=== PATIENT | female | born 1985 | race African-American/Black ===

== ENCOUNTER 2017-09-05 11:58 | Emergency (ER) | payer OTHER ==
[~2017-09-05] VITALS: Ht 165.1 cm; Wt 108.9 kg
[~2017-09-05 11:58] MED LIST: ADVIL200 M1; ADVIL200 M3; AMOXIL 875 MG875 M1 PO; APAP500 PO; CYCLOBENZAPRINE5 MG PO; DERMOPLAST SPRA56 ML; DIABETA 2.5MG2.5 MG PO; DOXYCYCLINE 10100 MG PO; FLONASE 0.05%50 MCG NASAL; HYDROCODON-ACE1 EAC7 PO; HYDROCORTISONE30 G9 RE; IBUPROFEN 600600 M1 PO; IBUPROFEN 800800 M1 PO; IBUPROFEN 800800 MG PO; KEFLEX500 MG PO; LANOLIN56 GM; NAPROSYN500 MG PO; NOHOMEMEDICATIONS; NORCO 5-325 TA1 EACH PO; NORFLEX100 MG PO; PERCOCET PO; PRENATAL; PRENATAL PO; PRENATAL TABLE1 EAC3 PO; PROMETHAZINE-C120 ML PO; TRAMADOL 50 MG50 MG PO; TRIAMTERENE-HC1 EAC1 PO; TUCKS MEDICATE1 EAC1; ULTRAM 50MG TAB50 MG PO; VENTOLIN17 GM INH; ZPAK PO
[2017-09-05] MEDS ORDERED: TESSALON PERLE100 MG PO (13:18)
[2017-09-05] MEDS ORDERED: PREDNISONE 20 M20 MG PO (13:18)
== END 2017-09-05 13:37 | disposition home or self-care (01) ==
LOC: ER 11:58
DX: J40 Bronchitis, not specified as acute or chronic (principal); F17.210 Nicotine dependence, cigarettes, uncomplicated; F10.99 Alcohol use, unspecified with unspecified alcohol-induced disorder

== ENCOUNTER 2018-01-02 17:55 | Emergency (ER) | payer OTHER ==
[~2018-01-02] VITALS: Ht 165.1 cm; Wt 113.4 kg
--- NOTE | ~2018-01-02 | EKG ---
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: DARINEL : 1985 Requested By: Laura Muñiz Order Number: [id number] MD: Kalpesh Newton Measurements Intervals [place] Rate: 68 P: 20 WV: 165 QRS: -2 QRSD: 100 T: 12 QT: 410 QTc: 437 Interpretive Statements Sinus rhythm Nonspecific T wave abnormality Baseline wander in lead(s) I,aVL,V1 Compared to ECG 09/15/2016 11:25:47 T wave abnormality is now present Electronically Signed On 01-04-2018 8:44:17 NAVIGATING OFFICER by Kalpesh Newton [email or web address] <ELECTRONICALLY SIGNED> By: Kalpesh Newton MD, [facility] 01/04/18 0844 1811 181 Kalpesh Newton MD, [facility] /EPI
[~2018-01-02 17:55] MED LIST changes: +FLAGYL500 MG PO; +MOBIC7.5 MG PO; +ONDANSETRON HCL4 M2 PO; +PREDNISONE 20 M20 MG PO; +TESSALON PERLE100 MG PO
[2018-01-02] MEDS ORDERED: VIRTUSSIN AC L118 ML PO (18:36)
[2018-01-02] MEDS ORDERED: TESSALON PERLE100 MG PO (18:36)
[2018-01-02 18:55] VITALS: BP 125/74
[2018-05-28] MEDS ORDERED: TRAMADOL 50 MG50 MG PO (22:20)
[2018-05-28] MEDS ORDERED: PREDNISONE 20 M20 MG PO (22:20)
[2018-07-30] MEDS ORDERED: MEDROLDOSEPACK PO (12:09)
[2018-07-30] MEDS ORDERED: NORCO 5-325 TA1 EACH PO (12:09)
[2018-07-30] MEDS ORDERED: FLEXERIL PO (12:09)
== END 2018-01-02 18:59 | disposition home or self-care (01) ==
LOC: ER 17:55
DX: J06.9 Acute upper respiratory infection, unspecified (principal); R07.89 Other chest pain; F17.210 Nicotine dependence, cigarettes, uncomplicated

== ENCOUNTER 2018-09-25 18:44 | Emergency (ER) | payer OTHER ==
[~2018-09-25] VITALS: Ht 165.1 cm; Wt 120.2 kg
[~2018-09-25 18:44] MED LIST changes: +FLEXERIL PO; +MEDROLDOSEPACK PO; +VIRTUSSIN AC L118 ML PO
[2018-09-25 19:03] LABS: URINE BILIRUBIN NEGATIVE (Negative); URINE BLOOD NEGATIVE (Negative); URINE CLARITY CLEAR; URINE COLOR YELLOW; URINE GLUCOSE-RANDOM* NEGATIVE (Negative); URINE KETONES NEGATIVE (Negative); URINE LEUKOCYTES-REFLEX NEGATIVE (Negative); URINE NITRITE-REFLEX NEGATIVE (Negative); URINE PROTEIN (DIPSTICK) NEGATIVE (Negative); URINE SPECIFIC GRAVITY 1.015 (1.005-1.035); URINE UROBILINOGEN 0.2 E.U./dl (0.2-1.0)
[2018-09-25 19:16] LABS: BACTERIA-REFLEX None Seen /HPF (None Seen); CASTS None Seen /LPF (None Seen); CRYSTALS None Seen /LPF (None Seen); SQUAMOUS None Seen /LPF (0-3); URINE RBC 0-2 Rare /HPF (0-2); URINE WBC-REFLEX None Seen /HPF (0-5)
[2018-09-25 20:55] LABS: ABSOLUTE NEUTROPHILS 3.3 thou/uL (1.4-8.2); BASOPHILS 1.1 % (0.0-2.0); EOSINOPHILS 4.4 % (0.0-3.0); HEMATOCRIT 36.9 % (37.0-47.0); HEMOGLOBIN 12.7 gm/dL (12.0-15.0); LYMPHOCYTES 31.1 % (24.0-44.0); MCH 30.5 pg (26.0-34.0); MCHC 34.6 g/dL (28.0-37.0); MCV 88.2 fL (80.0-100.0); MONOCYTES 5.7 % (1.0-8.0); PLATELET COUNT 281 thou/uL (150-400); POLYS 57.7 % (36.0-66.0); RBC 4.18 mil/uL (4.20-5.00); RDW 14.1 % (10.5-14.5); WBC 5.7 thou/uL (4.0-11.0)
[2018-09-25 21:04] LABS: CALCIUM 8.8 mg/dL (8.5-10.1); CREATININE 1.1 mg/dL (0.6-1.0); POTASSIUM 3.4 mmol/L (3.5-5.1)
[2018-09-25 21:09] LABS: ALBUMIN 3.4 g/dL (3.4-5.0); TOTAL BILIRUBIN 0.1 mg/dL (<0.1-1.0); TOTAL PROTEIN 7.3 g/dL (6.4-8.2)
[2018-09-25] MEDS ORDERED: ONDANSETRON HCL4 M2 PO (21:49)
[2018-09-25] MEDS ORDERED: PREDNISONE 20 M20 M1 PO (21:52)
== END 2018-09-25 22:02 | disposition home or self-care (01) ==
LOC: ER 18:44
PROVIDERS: Emergency Medicine; Physician Assistant
DX: B34.9 Viral infection, unspecified (principal); E87.6 Hypokalemia; R09.81 Nasal congestion; R53.81 Other malaise; R11.0 Nausea; F17.210 Nicotine dependence, cigarettes, uncomplicated; R42 Dizziness and giddiness

== ENCOUNTER 2018-11-28 12:54 | Emergency (ER) | payer BC ==
[~2018-11-28] VITALS: Ht 167.6 cm; Wt 104.3 kg
[~2018-11-28 12:54] MED LIST changes: +PREDNISONE 20 M20 M1 PO
[2018-11-28] MEDS ORDERED: TRAMADOL 50 MG50 MG PO (14:51)
[2018-11-28] MEDS ORDERED: FLEXERIL PO (14:51)
[2018-11-28] MEDS ORDERED: MEDROLDOSEPACK PO (14:51)
[2018-11-28 15:21] VITALS: BP 148/58
== END 2018-11-28 15:21 | disposition home or self-care (01) ==
LOC: ER 12:54
DX: M25.561 Pain in right knee (principal); M54.31 Sciatica, right side; F17.210 Nicotine dependence, cigarettes, uncomplicated

== ENCOUNTER 2019-01-11 08:47 | Emergency (ER) | payer BC ==
[~2019-01-11] VITALS: Ht 165.1 cm; Wt 121.1 kg
[2019-01-11 10:03] VITALS: BP 98/58
== END 2019-01-11 10:03 | disposition home or self-care (01) ==
LOC: ER 08:47
DX: S39.92XA Unspecified injury of lower back, initial encounter (principal); F17.210 Nicotine dependence, cigarettes, uncomplicated; W10.9XXA Fall (on) (from) unspecified stairs and steps, initial encounter; Y92.89 Other specified places as the place of occurrence of the external cause; Y93.89 Activity, other specified; Y99.8 Other external cause status

== ENCOUNTER 2019-01-31 10:00 | Emergency (ER) | payer BC ==
[~2019-01-31] VITALS: Ht 165.1 cm; Wt 120.2 kg
[2019-01-31] MEDS ORDERED: PREDNISONE 20 M20 MG PO (11:11)
[2019-01-31] MEDS ORDERED: PEPCID20 MG PO (11:11)
[2019-01-31 12:18] VITALS: BP 127/56
== END 2019-01-31 12:19 | disposition home or self-care (01) ==
LOC: ER 10:00
DX: L23.9 Allergic contact dermatitis, unspecified cause (principal); L29.9 Pruritus, unspecified; F17.210 Nicotine dependence, cigarettes, uncomplicated

== ENCOUNTER 2019-07-21 15:44 | Emergency (ER) | payer OTHER ==
[~2019-07-21] VITALS: Ht 165.1 cm; Wt 117.9 kg
[~2019-07-21 15:44] MED LIST changes: +PEPCID20 MG PO
[2019-07-21 16:23] LABS: ABSOLUTE NEUTROPHILS 3.4 thou/uL (1.4-8.2); BASOPHILS 1.1 % (0.0-2.0); EOSINOPHILS 3.1 % (0.0-3.0); HEMATOCRIT 37.6 % (37.0-47.0); HEMOGLOBIN 12.8 gm/dL (12.0-15.0); LYMPHOCYTES 30.1 % (24.0-44.0); MCH 30.7 pg (26.0-34.0); MCHC 34.1 g/dL (28.0-37.0); MCV 90.1 fL (80.0-100.0); MONOCYTES 7.6 % (1.0-8.0); PLATELET COUNT 337 thou/uL (150-400); POLYS 58.1 % (36.0-66.0); RBC 4.18 mil/uL (4.20-5.00); RDW 14.1 % (10.5-14.5); WBC 5.9 thou/uL (4.0-11.0)
[2019-07-21 16:30] LABS: CALCIUM 8.7 mg/dL (8.5-10.1); CREATININE 0.7 mg/dL (0.6-1.0); POTASSIUM 3.7 mmol/L (3.5-5.1)
[2019-07-21 16:36] LABS: ALBUMIN 3.6 g/dL (3.4-5.0); TOTAL BILIRUBIN 0.1 mg/dL (<0.1-1.0); TOTAL PROTEIN 7.3 g/dL (6.4-8.2)
[2019-07-21 17:40] LABS: URINE BILIRUBIN NEGATIVE (Negative); URINE BLOOD 3+ (Negative); URINE CLARITY CLOUDY; URINE COLOR YELLOW; URINE GLUCOSE-RANDOM* NEGATIVE (Negative); URINE KETONES NEGATIVE (Negative); URINE LEUKOCYTES-REFLEX NEGATIVE (Negative); URINE NITRITE-REFLEX NEGATIVE (Negative); URINE PROTEIN (DIPSTICK) 1+ (Negative)
[2019-07-21 17:50] LABS: SQUAMOUS 4-10 Moderate /LPF (0-3)
[2019-07-21 17:51] LABS: BACTERIA-REFLEX 1-9 Few /HPF (None Seen); CASTS None Seen /LPF (None Seen); CRYSTALS None Seen /LPF (None Seen); URINE RBC >20 Many /HPF (0-2); URINE WBC-REFLEX None Seen /HPF (0-5)
[2019-07-21] MEDS ORDERED: NAPROSYN500 MG PO (18:24)
[2019-07-21] MEDS ORDERED: ONDANSETRON ODT8 MG PO (18:24)
[2019-07-21] MEDS ORDERED: TRAMADOL 50 MG50 MG PO (18:24)
[2019-07-21 18:39] VITALS: BP 147/70
== END 2019-07-21 18:52 | disposition home or self-care (01) ==
LOC: ER 15:44
PROVIDERS: Emergency Medicine
DX: R10.31 Right lower quadrant pain (principal); R11.2 Nausea with vomiting, unspecified; R05 Cough; F17.210 Nicotine dependence, cigarettes, uncomplicated; Z98.51 Tubal ligation status

== ENCOUNTER 2019-09-16 09:17 | Emergency (ER) | payer OTHER ==
[~2019-09-16] VITALS: Ht 165.1 cm; Wt 113.4 kg
[~2019-09-16 09:17] MED LIST changes: +ONDANSETRON ODT8 MG PO
[2019-09-16 09:43] LABS: URINE BILIRUBIN NEGATIVE (Negative); URINE BLOOD 3+ (Negative); URINE CLARITY CLEAR; URINE COLOR YELLOW; URINE GLUCOSE-RANDOM* NEGATIVE (Negative); URINE KETONES NEGATIVE (Negative); URINE LEUKOCYTES-REFLEX NEGATIVE (Negative); URINE NITRITE-REFLEX NEGATIVE (Negative); URINE PROTEIN (DIPSTICK) TRACE (Negative); URINE SPECIFIC GRAVITY 1.015 (1.005-1.035); URINE UROBILINOGEN 0.2 E.U./dl (0.2-1.0)
[2019-09-16 10:10] LABS: CASTS None Seen /LPF (None Seen); MUCUS >6 Heavy strn/LPF (None Seen); SQUAMOUS >10 Many /LPF (0-3)
[2019-09-16 10:11] LABS: BACTERIA-REFLEX 1-9 Few /HPF (None Seen); CRYSTALS None Seen /LPF (None Seen); URINE RBC 0-2 Rare /HPF (0-2); URINE WBC-REFLEX 0-5 Rare /HPF (0-5)
[2019-09-16 11:21] VITALS: BP 128/60
== END 2019-09-16 11:25 | disposition home or self-care (01) ==
LOC: ER 09:17
PROVIDERS: Emergency Medicine
DX: G89.29 Other chronic pain (principal); M54.5 Low back pain; F17.210 Nicotine dependence, cigarettes, uncomplicated

== ENCOUNTER → 2019-12-21 | Emergency (ER) | payer OTHER ==
[~2019-12-21] VITALS: Ht 165.1 cm; Wt 115.7 kg
[2019-12-21 13:05] VITALS: BP 138/70
== END ==
LOC: ER 10:47
DX: M54.5 Low back pain (principal); M25.561 Pain in right knee; M25.562 Pain in left knee; M25.461 Effusion, right knee; F17.210 Nicotine dependence, cigarettes, uncomplicated; Z98.51 Tubal ligation status; W01.0XXA Fall on same level from slipping, tripping and stumbling without subsequent striking against object, initial encounter; Y93.89 Activity, other specified; Y92.89 Other specified places as the place of occurrence of the external cause; Y99.8 Other external cause status

== ENCOUNTER 2020-01-31 12:51 | Emergency (ER) | payer OTHER ==
[~2020-01-31] VITALS: Ht 165.1 cm; Wt 113.4 kg
[2020-01-31] MEDS ORDERED: PROTONIX40 M2 PO (14:49)
[2020-01-31] MEDS ORDERED: ZOFRAN ODT4 MG PO (14:49)
[2020-01-31] MEDS ORDERED: BENTYL 20 MG TA20 M1 PO (14:49)
[2020-01-31 15:07] VITALS: BP 135/78
== END 2020-01-31 15:07 | disposition home or self-care (01) ==
LOC: ER 12:51
DX: K52.9 Noninfective gastroenteritis and colitis, unspecified (principal); K21.9 Gastro-esophageal reflux disease without esophagitis; R11.2 Nausea with vomiting, unspecified; F17.210 Nicotine dependence, cigarettes, uncomplicated; Z79.899 Other long term (current) drug therapy; Z98.51 Tubal ligation status